=== PATIENT | female | born 1980 | race Caucasian/White ===

== ENCOUNTER → 2018-03-11 | Outpatient (CLI) | payer BC ==
[~2018-03-11] MED LIST: AMOX500 PO; HYDACE5 PO
[2018-03-13 16:09] LABS: HPV 16 Negative (Negative); HPV 18 Negative (Negative); HPV OTHER HR TYPES Positive (Negative)
== END ==
LOC: LAB 17:25 → LAB SHORT 17:25
PROVIDERS: Registered Nurse Community Health
DX: Z01.411 Encounter for gynecological examination (general) (routine) with abnormal findings (principal); Z31.61 Procreative counseling and advice using natural family planning
CPT/HCPCS: 87624; 87625; G0123

== ENCOUNTER 2018-09-08 19:31 | Emergency (ER) | payer BC ==
[~2018-09-08] VITALS: Ht 157.5 cm; Wt 77.1 kg
== END 2018-09-08 20:43 | disposition home or self-care (01) ==
LOC: ER 19:31
DX: H10.12 Acute atopic conjunctivitis, left eye (principal); L50.0 Allergic urticaria; J30.89 Other allergic rhinitis; Z88.0 Allergy status to penicillin; Z87.891 Personal history of nicotine dependence
CPT/HCPCS: 96374; 96375; 99283-25; J1100; J1200

== ENCOUNTER 2019-05-20 05:39 | Inpatient (IN) | payer BC ==
[2019-05-19 16:02] LABS: BASOPHILS ABSOLUTE AUTO 0.03 K/mm3 (0.00-0.23); BASOPHILS PERCENT AUTO 0 % (0-2); EOSINOPHILS ABSOLUTE AUTO 0.17 K/mm3 (0.00-0.68); EOSINOPHILS PERCENT AUTO 2 % (0-6); Hematocrit 36.7 % (33.0-51.0); Hemoglobin 12.4 g/dL (11.5-16.0); IMMATURE GRAN ABSOLUTE AUTO 0.13 K/mm3 (0.00-0.10); IMMATURE GRAN PERCENT AUTO 1 % (0-1); LYMPHOCYTES ABSOLUTE AUTO 2.19 K/mm3 (0.84-5.20); LYMPHOCYTES PERCENT AUTO 20 % (21-46); MONOCYTES ABSOLUTE AUTO 1.02 K/mm3 (0.16-1.47); MONOCYTES PERCENT AUTO 9 % (4-13); Mean Corpuscular HGB 31.3 pg (26.0-34.0); Mean Corpuscular HGB Conc 33.8 g/dL (31.5-36.5); Mean Corpuscular Volume 93 fL (80-100); Mean Platelet Volume 9.9 fL (9.1-12.4); NEUTROPHILS ABSOLUTE AUTO 7.65 K/mm3 (1.96-9.15); NEUTROPHILS PERCENT AUTO 68 % (41-73); Platelet Count 211 K/mm3 (150-400); RDW Coefficient Variation 13.2 % (11.7-14.2); RDW Standard Deviation 44.6 fL (35.1-46.3); Red Blood Cell Count 3.96 M/mm3 (3.80-5.20); White Blood Cell Count 11.19 K/mm3 (4.00-11.30)
[~2019-05-20] VITALS: Ht 157.5 cm; Wt 95.4 kg
--- NOTE | 2019-05-20 08:03 | NUR ---
05/20/19 0803 Geovanna Granger 0753 DELIVERY VIABLE FEMALE INFANT WEIGHT 2745GM, HEAD 13 INCHES, CHEST 12.5 INCHES, LENGTH 19 INCHES, APGARS 9/9, UMBILICAL CORD SEGMENT COLLECTED FOR CORD GASES, GIVEN TO RT, UMBILCAL CORD BLOOD COLLECTED GIVEN TO RN, RIGHT AND LEFT FALLOPIAN TUBE COLLECTED LABELED AND SENT TO PATHOLOGY, PLACENTA 640GM
[2019-05-20 08:12] LABS: PCO2 Cord - Arterial 51 mmHg (40-50); PO2 Cord - Arterial < 13 mmHg (16-20); pH Cord - Arterial 7.27 (7.28-7.35)
[2019-05-20 08:13] LABS: PCO2 Cord - Venous 45 mmHg (40-50); PO2 Cord - Venous 17 mmHg (28-32); pH Umbilical Cord - Venous 7.33 (7.26-7.35)
--- NOTE | 2019-05-20 09:38 | NUR ---
OUT TO ROOM WITH RONALD
--- NOTE | 2019-05-20 09:38 | NUR ---
REPT TO Bruce ROBB RN
--- NOTE | 2019-05-20 11:31 | NUR ---
REPORT TO YESSY ALDRICH. NO ACUTE CHANGES, FMS ORDERED BY MYSELF. PT RESTING IN BED.
[2019-05-21 05:49] LABS: BASOPHILS ABSOLUTE AUTO 0.03 K/mm3 (0.00-0.23); BASOPHILS PERCENT AUTO 0 % (0-2); EOSINOPHILS ABSOLUTE AUTO 0.19 K/mm3 (0.00-0.68); EOSINOPHILS PERCENT AUTO 2 % (0-6); Hemoglobin 11.4 g/dL (11.5-16.0); IMMATURE GRAN ABSOLUTE AUTO 0.08 K/mm3 (0.00-0.10); IMMATURE GRAN PERCENT AUTO 1 % (0-1); LYMPHOCYTES ABSOLUTE AUTO 1.94 K/mm3 (0.84-5.20); LYMPHOCYTES PERCENT AUTO 17 % (21-46); MONOCYTES ABSOLUTE AUTO 1.11 K/mm3 (0.16-1.47); MONOCYTES PERCENT AUTO 10 % (4-13); Mean Corpuscular HGB 31.1 pg (26.0-34.0); Mean Corpuscular HGB Conc 33.5 g/dL (31.5-36.5); Mean Corpuscular Volume 93 fL (80-100); Mean Platelet Volume 10.2 fL (9.1-12.4); NEUTROPHILS PERCENT AUTO 71 % (41-73); Platelet Count 166 K/mm3 (150-400); RDW Coefficient Variation 13.3 % (11.7-14.2); RDW Standard Deviation 45.1 fL (35.1-46.3); Red Blood Cell Count 3.66 M/mm3 (3.80-5.20); White Blood Cell Count 11.65 K/mm3 (4.00-11.30)
--- NOTE | 2019-05-21 19:29 | NUR ---
REPORT TO YESSY DEMPSEY
[2019-05-22] MEDS ORDERED: Percocet 5-3251 EACH PO (10:11)
[2019-05-22] MEDS ORDERED: DOCU100 PO (10:12)
[2019-05-22] MEDS ORDERED: IBUP800 PO (10:12)
--- NOTE | 2019-05-22 12:59 | NUR ---
DISCHARGE DISCHARGE TEACHING COMPLETE PT AND SIGNIFCANT OTHER VERBALIZE UNDERSTANDING AND HAVE NO FURTHER QUESTIONS AT THIS TIME. PATIENT DISCHARGED TO HOME IN CAR AT 1255
== END 2019-05-22 12:55 | disposition home or self-care (01) | DRG 785 ==
LOC: BC 05:39
PROVIDERS: ADMIT Obstetrics & Gynecology
PROC: 10D00Z1 Extraction of Products of Conception, Low, Open Approach (ICD-10-PCS; principal; 2019-05-20 07:30)
PROC: 0UT70ZZ Resection of Bilateral Fallopian Tubes, Open Approach (ICD-10-PCS; 2019-05-20 07:30)
DX: O34.211 Maternal care for low transverse scar from previous cesarean delivery (principal); O34.593 Maternal care for other abnormalities of gravid uterus, third trimester; Z30.2 Encounter for sterilization; Z3A.37 37 weeks gestation of pregnancy; Z37.0 Single live birth; Z88.0 Allergy status to penicillin
CPT/HCPCS: 36415; 82803; 82947; 85025; 85460; 86850; 86870; 86900; 86901; 88302; 96372; J0690; J1885; J2405; J2590; J2765; J2791; J3010; J7120

== ENCOUNTER → 2022-10-30 | Outpatient (CLI) | payer BC ==
[~2022-10-30] MED LIST changes: +DOCU100 PO; +IBUP800 PO; +Percocet 5-3251 EACH PO
[2022-10-31 16:11] LABS: HPV 16 Negative (Negative); HPV 18 Negative (Negative); HPV OTHER HR TYPES Negative (Negative)
== END | disposition home or self-care (01) ==
LOC: LAB SHORT 15:08 → LAB 15:08
PROVIDERS: Obstetrics & Gynecology
DX: Z01.419 Encounter for gynecological examination (general) (routine) without abnormal findings (principal)
CPT/HCPCS: 87624; G0145

== ENCOUNTER 2022-12-19 11:24 | Day surgery (SDC) | payer BC ==
[~2022-12-19] VITALS: Ht 157.5 cm; Wt 88.4 kg
[2022-12-19] MEDS ORDERED: HYDPAM25 (11:53)
[2022-12-19] MEDS ORDERED: SERT100 PO (11:53)
[2022-12-19 15:04] VITALS: BP 136/69
--- NOTE | 2022-12-19 15:06 | NUR ---
12/19/22 1506 STEPHANIE RICHARDSON LATE ENTRY: 1415: DISCUSSED WITH DR. SHERMAN REGARDING PT'S HEART RATE SUSTAINING IN THE 45-51 RANGE. PT ASYMPTOMATIC OF CHEST PAIN, OR DIZZINESS. DR. SHERMAN IS AGREEABLE TO PT GOING HOME. PT ESCORTED TO BATHROOM VIA WC, AND IS ABLE TO VOID SUCCESSFULLY. PT VOICED READINESS TO GO HOME, AND WAS ESCORTED TO PRIVATE VEHICLE VIA A WC.
== END 2022-12-19 14:20 | disposition home or self-care (01) ==
LOC: ORSCSDS 11:24
PROVIDERS: Obstetrics & Gynecology
PROC: 0UDB8ZX Extraction of Endometrium, Via Natural or Artificial Opening Endoscopic, Diagnostic (ICD-10-PCS; principal; 2022-12-19 12:45)
DX: D25.0 Submucous leiomyoma of uterus (principal); N93.9 Abnormal uterine and vaginal bleeding, unspecified; Z87.891 Personal history of nicotine dependence; F32.A Depression, unspecified; E66.9 Obesity, unspecified; Z68.35 Body mass index [BMI] 35.0-35.9, adult; Z79.899 Other long term (current) drug therapy
CPT/HCPCS: 88305; A9270; J1100; J1885; J2250; J2405; J2704; J3010; J7120

== ENCOUNTER 2023-05-22 10:59 | Day surgery (SDC) | payer BC ==
[~2023-05-22] VITALS: Ht 160 cm; Wt 88.0 kg
[2023-05-22] VITALS (11 sets, daily range): BP systolic 114–138; BP diastolic 71–111
[~2023-05-22 10:59] MED LIST changes: +FERROUS GLUCON324 M2 PO; +HYDPAM25 PO; +SERT100 PO
--- NOTE | 2023-05-22 11:56 | NUR ---
History, Chart, Medications and Allergies reviewed before start of procedure. Ambulatory in Day Surgery. Pre-Op teaching done. Pt verbalizes understanding. Patient confirms NPO status and agrees with scheduled surgery. Lungs clear T/O to Auscultation. Patient States Post-Procedure ride home has been arranged.
--- NOTE | 2023-05-22 14:00 | NUR ---
REPORT RECEIVED FROM PAMELA KRISHNAMURTHY. VSS. PT ABLE TO REPOSITION SELF IN BED. PT REQUESTING PO FOOD AND FLUIDS AND TOLERATING THEM WELL. PT HAS LYUDMILA PAD IN PLACE WITH NO BLEEDING OR DRAINAGE. PT REPORTS 3/10 ACHING VAGINAL PAIN. PT ALSO REPORTS SOME DISCOMFORT TO HER BACK. PT DENIES NAUSEA OR OTHER DISCOMFORTS.
--- NOTE | 2023-05-22 14:51 | NUR ---
Patient up to Ambulate independently TO BATHROOM. Gait steady. PT ABLE TO VOID. MINIMAL BLEEDING NOTED. VSS AND CONSISTENT WITH PT BASELINE. Discharge instructions reviewed with patient. Patient verbalizes understanding. Copy given to patient to take home. PT PAIN CONTROLLED AND PT VERBALIZES READINESS TO GO HOME. Patient States Post-Procedure ride home has been arranged. Discharged via wheelchair to private car for ride home. PT BELONGINGS RETURNED TO PT.
== END 2023-05-22 14:55 | disposition home or self-care (01) ==
LOC: ORSCMMR 10:59 → ORD 13:00 → ORSCMMR 13:00
PROVIDERS: Obstetrics & Gynecology
PROC: 0U5B8ZZ Destruction of Endometrium, Via Natural or Artificial Opening Endoscopic (ICD-10-PCS; principal; 2023-05-22 12:30)
DX: N92.0 Excessive and frequent menstruation with regular cycle (principal)
CPT/HCPCS: 88305; A9270; J1100; J1885; J2250; J2405; J2704; J3010; J7120